=== PATIENT | female | born 1960 | race Caucasian/White ===

== ENCOUNTER 2021-01-04 10:23 | Emergency (ER) | payer BC, MEDICARE ==
[2021-01-04] MEDS ORDERED: Phenazopyridine 95 MG Tab PO ONE (11:03)
--- NOTE | 2021-01-04 11:12 | EDM.PDOC ---
ED HPI GENERAL MEDICAL PROBLEM - General Chief Complaint: Genitourinary Problem Stated Complaint: PAIN WHILE URINATING Time Seen by Provider: 01/04/21 11:00 Source of Information: Reports: Patient, RN. Denies: Old Records History Limitations: Reports: Other (minimal old records) - History of Present Illness INITIAL COMMENTS - FREE TEXT/NARRATIVE: 60 yo female here with onset last evening of dysuria and frequency. No fever or vomiting or flank pain. Has a pHx of frequent UTI's and is immunocompromised. Here with on their way home to the [facility]. Onset: Gradual Onset Date: 01/03/21 Duration: Day(s): (<1 day), Getting Worse Location: Reports: Pelvis (urethral and bladder) Quality: Reports: Burning Severity: Moderate Improves with: Reports: None Worsens with: Reports: Other (time and urination) Context: Reports: Other (See HPI) Associated Symptoms: Reports: No Other Symptoms. Denies: Fever/Chills, Nausea/V omiting Treatments NET APPLICATION ARCHITECT: Reports: Other (see below) (none) - Related Data Allergies Allergy/AdvReac Type Severity Reaction Status Date / Time ciprofloxacin [From Cipro] Allergy Diarrhea Verified 01/04/21 10:45 duloxetine [From Cymbalta] Allergy Hallucinati Verified 01/04/21 10:45 ons gabapentin Allergy Hallucinati Verified 01/04/21 10:45 ons midazolam [From Versed] Allergy Edema Verified 01/04/21 10:43 oxycodone Allergy Hallucinati Verified 01/04/21 10:45 ons pregabalin [From Lyrica] Allergy Hallucinati Verified 01/04/21 10:45 ons sulfamethoxazole Allergy Renal Verified 01/04/21 10:43 [From Bactrim] Insufficiency trimethoprim [From Bactrim] Allergy Renal Verified 01/04/21 10:43 Insufficiency Home Meds: Home Meds Aspirin 81 mg PO DAILY 01/04/21 [History] Everolimus [Zortress] 1 mg PO ASDIRECTED 01/04/21 [History] LORazepam [Ativan] 1 mg PO BEDTIME 01/04/21 [History] Levothyroxine 125 mcg PO ACBREAKFAST 01/04/21 [History] Lipase/Protease/Amylase [Alejandrina Ruvalcaba 36,000 Units Capsule] 1 tab PO ASDIRECTED 01/04/21 [History] Metoprolol Succinate [Toprol XL] 25 mg PO ASDIRECTED 01/04/21 [History] Sodium Bicarbonate 650 mg PO ASDIRECTED 01/04/21 [History] Tacrolimus [Prograf] 1 cap PO ASDIRECTED 01/04/21 [History] cephALEXin [Cephalexin] 500 mg PO Q8H #15 capsule 01/04/21 [Rx] traZODone 50 mg PO BEDTIME 01/04/21 [History] Past Medical History HEENT History: Reports: Other (See Below) Other HEENT History: diabetic retinopathy (totally blind) Respiratory History: Reports: Other (See Below) Other Respiratory History: pneumococcal pneumonia in 2007 Gastrointestinal History: Reports: Other (See Below) Other Gastrointestinal History: 2 kidney transplants 1986 and 2007. 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, in Jun 2020 triple positive breast cancer, multiple squamas and basal cell skin cancers Dermatologic History: Reports: Other (See Below) Other Dermatologic History: basal and squamous cell carcinoma - Infectious Disease History Infectious Disease History: Reports: None - Past Surgical History HEENT Surgical History: Reports: None Cardiovascular Surgical History: Reports: Other (See Below) Other Cardiovascular Surgeries/Procedures: 2 vessel cav 2002, guerrero to [facility], SGT to the [facility] Respiratory Surgical History: Reports: None GI Surgical History: Reports: Appendectomy Other GI Surgeries/Procedures: incidental appy with organ transplant Musculoskeletal Surgical History: Reports: Other (See Below) Other Musculoskeletal Surgeries/Procedures:: tibia platue fx with plate and screws Social & Family History - Family History Family Medical History: No Pertinent Family History - Tobacco Use Tobacco Use Status *Q: Never Tobacco User Second Hand Smoke Exposure: No - Caffeine Use Caffeine Use: Reports: Coffee - Recreational Drug Use Recreational Drug Use: No ED ROS GENERAL - Review of Systems Review Of Systems: See Below Constitutional: Reports: No Symptoms. Denies: Fever, Chills HEENT: Reports: No Symptoms Respiratory: Reports: No Symptoms Cardiovascular: Reports: No Symptoms GI/Abdominal: Reports: No Symptoms : Reports: Dysuria, Frequency. Denies: Flank Pain, Hematuria, Incontinence Skin: Reports: No Symptoms ED EXAM, RENAL/ - Physical Exam Exam: See Below Exam Limited By: No Limitations General Appearance: Alert, WD/WN, No Apparent Distress Eye Exam: Bilateral Eye: Normal Inspection Ears: Normal External Exam, Normal Canal, Hearing Grossly Normal. No: Hearing Loss Nose: Normal Inspection, No Blood Throat/Mouth: Normal Inspection, Normal Lips, Normal Voice, No Airway Compromise Head: Atraumatic, Normocephalic, Other (alopecia of scalp) Neck: Normal Inspection Respiratory/Chest: No Respiratory Distress, Lungs Clear, Normal Breath Sounds, No Accessory Muscle Use Cardiovascular: Regular Rate, Rhythm GI/Abdominal: Soft, Non-Tender, No Distention. No: Distended Back Exam: Normal Inspection. No: CVA Tenderness (R), CVA Tenderness (L) Extremities: Normal Inspection Neurological: Alert, Oriented, CN II-XII Intact, Normal Cognition, No Motor/Sensory Deficits Psychiatric: Normal Affect, Normal Mood Skin Exam: Warm, Dry, Intact, Normal Color, No Rash Course - Vital Signs Last Recorded V/S: Last Vital Signs Temp 36.3 C 01/04/21 10:45 Pulse 75 01/04/21 10:45 Resp 14 01/04/21 10:45 BP 110/56 L 01/04/21 10:45 Pulse Ox 98 01/04/21 10:45 - Orders/Labs/Meds Orders: Active Orders 24 hr Category Date Time Status CULTURE URINE [RM] Stat Lab 01/04/21 11:28 Ordered Labs: Laboratory Tests 01/04/21 Range/Units 10:56 Urine Color Yellow (YELLOW) Urine Appearance Turbid A (CLEAR) Urine pH 8.0 (5.0-8.0) Ur Specific [place] 1.020 (1.008-1.030) Urine Protein >=300 H (NEGATIVE) mg/dL Urine Glucose (UA) Negative (NEGATIVE) mg/dL Urine Ketones Negative (NEGATIVE) mg/dL Urine Occult Blood Large H (NEGATIVE) Urine Nitrite Positive H (NEGATIVE) Urine Bilirubin Negative (NEGATIVE) Urine Urobilinogen 0.2 (0.2-1.0) EU/dL Ur Leukocyte Esterase Large H (NEGATIVE) Urine RBC Packed H (0-5) Urine WBC Packed H (0-5) Ur Epithelial Cells Not seen Amorphous Sediment Not seen Urine Bacteria Many Urine Mucus Not seen Meds: Medications Discontinued Medications Generic Name Dose Route Start Last Admin Trade Name Freq PRN Reason Stop Dose Admin Cephalexin 500 mg 01/04/21 11:28 Cephalexin 250 Mg Cap PO 01/04/21 11:29 ONETIME ONE Phenazopyridine HCl 190 mg 01/04/21 11:03 01/04/21 11:07 Phenazopyridine 95 Mg Tab PO 01/04/21 11:04 190 mg ONETIME ONE Administration Departure - Departure Time of Disposition: 11:30 Disposition: Home, Self-Care 01 Condition: Good Clinical Impression: Cystitis - Discharge Information *PRESCRIPTION DRUG MONITORING PROGRAM REVIEWED*: Not Applicable *COPY OF PRESCRIPTION DRUG MONITORING REPORT IN PATIENT CEE: Not Applicable Prescriptions: cephALEXin [Cephalexin] 500 mg PO Q8H #15 capsule Referrals: MICHELLE MEMBRENO [Other] Forms: ED Department Discharge Additional Instructions: Take cephalexin every 8 hrs as directed for your urinary infection. Your culture will be available between 2 and 3 days from now. Drink ample fluids and use AZO per package instructions for your burning/frequency symptoms. F/U with your provider if not improving by 2-3 days. Sepsis Event Note (ED) - Evaluation Sepsis Screening Result: No Definite Risk - Focused Exam Vital Signs: Vital Signs Temp Pulse Resp BP Pulse Ox 01/04/21 10:45 36.3 C 75 14 110/56 L 98 - My Orders Last 24 Hours: My Active Orders 01/04/21 11:28 CULTURE URINE [RM] Stat - Assessment/Plan Last 24 Hours: My Active Orders 01/04/21 11:28 CULTURE URINE [RM] Stat
[2021-01-04] MEDS ORDERED: Cephalexin 250 MG Cap PO ONE (11:28)
== END 2021-01-04 11:47 | disposition home or self-care (01) ==
LOC: JP.ED 10:23
DX: N30.90 Cystitis, unspecified without hematuria (principal); Z88.1 Allergy status to other antibiotic agents; E10.319 Type 1 diabetes mellitus with unspecified diabetic retinopathy without macular edema; Z88.8 Allergy status to other drugs, medicaments and biological substances; Z88.5 Allergy status to narcotic agent; Z79.82 Long term (current) use of aspirin; Z79.899 Other long term (current) drug therapy
CPT/HCPCS: 81001; 87086; 87088; 87186; 99283; A9270